=== PATIENT | female | born 1960 | race Caucasian/White ===

== ENCOUNTER → 2016-10-25 | Outpatient (CLI) | payer OTHER ==
--- NOTE | 2016-10-25 12:23 | KCIC ---
Bilateral digital screening mammograms with CAD: HISTORY Routine screening. COMPARISON Comparison is made to previous studies dated 05/18/2014 and 04/11/2011. FINDINGS Breast density category B. The skin and nipples show no abnormalities. No abnormal lymph nodes are seen in the axilla. The breast parenchyma shows scattered fibroglandular density. There is some nodular architectural distortion centered at the 12 o'clock position of the left breast centrally. Further evaluation with coned compression views and ultrasound is recommended. There are no other dominant masses, suspicious calcifications or architectural distortions. IMPRESSION New nodular architectural distortion of 12:00 position of the left breast centrally. Recommend further evaluation with additional views and ultrasound. This study was interpreted with the benefit of Computerized Aided Detection (CAD). Mammography is not 100% sensitive in detecting breast cancer. Therefore, a self breast exam and a clinical breast exam are very important. A negative mammogram does not negate a clinically suspicious finding and should not result in a delay in biopsying a clinically suspicious abnormality. BI-RADS category 0: Incomplete. Additional imaging is recommended. This patient's information has been entered into a reminder system for the patient to be notified with the results of this examination and a target date for her next mammograms. Electronically signed by: Neema Woodard MD (Oct 25, 2016 12:22:01)
== END | disposition home or self-care (01) ==
LOC: KCIC MAMMO 08:18
PROVIDERS: ATTEND Family Medicine
DX: Z12.31 Encounter for screening mammogram for malignant neoplasm of breast (principal)
CPT/HCPCS: G0202; 77067

== ENCOUNTER → 2016-11-01 | Outpatient (CLI) | payer BC ==
--- NOTE | 2016-11-01 16:11 | KCIC ---
Diagnostic digital mammograms left breast: Reason for examination: New nodular architectural distortion on screening mammogram. Comparison is made to previous study dated 10/25/2016. Coned compression views were obtained of the left breast with attention to the central breast. Nodular architectural distortion persists and malignancy is suspected. Further evaluation with ultrasound will follow. Impression: Nodular architectural distortion consistent with suspected malignancy in the central left breast. Ultrasound to follow. BI-RADS category 0: Incomplete. Ultrasound to follow. Left breast ultrasound: Ultrasound examination of the left breast was performed. There is some ductal ectasia in the 9 o'clock position 1 centimeter from the nipple. In the 9 o'clock position 4 centimeters from the nipple and corresponding to the area of mammographic concern, there is a spiculated mass measuring approximately 1.5 centimeters in greatest dimension. Malignancy is suspected and ultrasound-guided biopsy is recommended. No abnormal lymph nodes are seen in the left axilla. Impression: 1.5 centimeter spiculated mass in the 9:00 position 4 centimeters from the nipple. Recommend ultrasound-guided biopsy. BI-RADS category 5: Highly suspicious. The patient was notified of these findings at the time of the examination. The office of Dr. Marii Ordoñez was called with this report and findings were related to Ashlee the nurse practitioner on 11/01/2016 at 4:03 p.m. This patient's information has been entered into a reminder system for the patient to be notified with the results of this examination and a target date for her next mammograms. Electronically signed by: Neema Woodard MD (Nov 01, 2016 16:09:44)
== END | disposition home or self-care (01) ==
LOC: KCIC MAMMO 12:46
PROVIDERS: ATTEND Family Medicine
DX: N63 Unspecified lump in breast (principal)
CPT/HCPCS: 76641; G0206; 77065

== ENCOUNTER → 2021-03-29 | Outpatient (CLI) | payer OTHER ==
[2021-03-29 09:17] LABS: BASO # 0.1 x10^3/uL (0.0-0.2); BASO % 1 % (0-3); EOS # 0.2 x10^3/uL (0.0-0.7); EOS % 4 % (0-3); HEMATOCRIT 43.7 % (36.0-47.0); HEMOGLOBIN 15.3 g/dL (12.0-15.5); LYMPH # 1.3 x10^3/uL (1.0-4.8); LYMPH % 25 % (24-48); MEAN CORPUSCULAR HEMOGLOBIN 31 pg (25-35); MEAN CORPUSCULAR HGB CONC 35 g/dL (31-37); MEAN CORPUSCULAR VOLUME 89 fL (79-100); MONO # 0.5 x10^3/uL (0.0-1.1); MONO % 10 % (0-9); NEUT # 3.2 x10^3/uL (1.8-7.7); NEUT % 61 % (31-73); PLATELET COUNT 274 x10^3/uL (140-400); RED BLOOD COUNT 4.92 x10^6/uL (3.50-5.40); RED CELL DISTRIBUTION WIDTH 13.3 % (11.5-14.5); WHITE BLOOD COUNT 5.3 x10^3/uL (4.0-11.0)
[2021-03-29 09:32] LABS: ALBUMIN 3.8 g/dL (3.4-5.0); ALBUMIN/GLOBULIN RATIO 1.1 (1.0-1.7); CALCIUM 9.5 mg/dL (8.5-10.1); CREATININE 1.1 mg/dL (0.6-1.0); GFR 50.5; POTASSIUM 4.1 mmol/L (3.5-5.1); TOTAL BILIRUBIN 0.8 mg/dL (0.2-1.0); TOTAL PROTEIN 7.2 g/dL (6.4-8.2)
== END ==
LOC: LAB 08:44
DX: E78.89 Other lipoprotein metabolism disorders (principal); Z85.3 Personal history of malignant neoplasm of breast
CPT/HCPCS: 36415; 80053; 85025